=== PATIENT | male | born 1975 | race Caucasian/White ===

== ENCOUNTER → 2020-03-14 10:56 | Outpatient (CLI) | payer OTHER, SELFPAY ==
--- NOTE | 2020-03-14 | DI.CT.S_ITS ---
PROCEDURE: CT ABDOMEN PELVIS W CON INDICATIONS: GENERALIZED PAIN TECHNIQUE: After the administration of oral and intravenous contrast, 5 mm thick sections acquired from the diaphragms to the symphysis. 5 mm thick coronal and sagittal reformats were performed. For radiation dose reduction, the following was used: automated exposure control, adjustment of mA and/or kV according to patient size. COMPARISON: [facility], CT, IVP (ABD & PEL WWO CONTRAST), 05/07/2013, 10:14. FINDINGS: Image quality: Excellent. ABDOMEN: Lung bases: Lung bases are clear. Heart size is normal. Solid organs: Liver is normal in size and enhancement. Gallbladder appears normal . Biliary system is non-dilated. Pancreas enhances normally. Spleen is normal in size and enhancement. No adrenal nodules. Kidneys are normal in size and enhancement, without hydronephrosis. Peritoneum and bowel: Stomach, small bowel, and colon loops are normal in caliber and wall thickness. No free fluid or air. Nodes and vessels: No retroperitoneal or mesenteric adenopathy. Aorta and inferior vena cava are normal in caliber. Miscellaneous: No ventral hernias. PELVIS: Genitourinary: Bladder wall thickness is normal. At the inferior margin of the left hemipelvis there is a small rounded calcification which appears to be positioned just below and slightly lateral to the expected insertion of the distal left ureter. Edema adjacent to the ureter on the left or ureteral dilatation or renal collecting system dilatation is not seen and there is no left-sided perinephric edema. Therefore this is considered most likely a interval development of a focal phlebolith rather than a 9 usual positioning of a distal left ureteral stone. Miscellaneous: No inguinal hernias or adenopathy. Bones: No suspicious bony lesions. No vertebral body compression fractures. IMPRESSION: Uncertain etiology of generalized abdominal pain. No infection or neoplasm is found. As discussed above near the expected far distal margin of the left ureter there is a single small calcification considered most likely a interval development of a phlebolith from the CT scanning in April of 2013 and highly unlikely to represent a distal left ureteral stone given the absence of any Haylee ureteral edema, ureteral distension, or renal collecting system dilatation on the left. Dictated by: Shukri Fregoso M.D. on 03/14/2020 at 14:34 Approved by: Shukri Fregoso M.D. on 03/14/2020 at 14:39
== END ==
PROVIDERS: PCP Student in an Organized Health Care Education/Training Program; Referring Provider Student in an Organized Health Care Education/Training Program; Visit Provider Student in an Organized Health Care Education/Training Program
DX: R10.84 Generalized abdominal pain (principal); R19.7 Diarrhea, unspecified
CPT/HCPCS: 74177; Q9967

== ENCOUNTER → 2020-03-27 14:13 | Outpatient (CLI) | payer OTHER, SELFPAY ==
[2020-03-27 14:47] LABS: Add Manual Diff / Slide Review NO; Basophils Absolute Auto 100 /uL (0-100); Basophils Percent Auto 0.8 % (0-2); Eosinophils Absolute Auto 200 /uL (0-450); Eosinophils Percent Auto 1.6 % (2-4); Hematocrit 41.8 % (41-53); Hemoglobin 13.6 g/dL (13.5-17.5); Lymphocytes Absolute Auto 2000 /uL (1100-4500); Lymphocytes Percent Auto 16.7 % (25-40); Mean Corpuscular HGB Conc 32.5 % (30-36); Mean Corpuscular Hemoglobin 29.1 PG (26-34); Mean Corpuscular Volume 89.5 fL (80-100); Monocytes Absolute Auto 1000 /uL (0-900); Monocytes Percent Auto 8.3 % (3-14); Neutrophils Absolute Auto 8900 /uL (1500-7000); Neutrophils Percent Auto 72.6 % (50-75); Platelet Count 311 X10^3/uL (150-400); Red Blood Cell Count 4.67 X10^6/uL (4.5-5.9); Red Cell Distribution Width 17.9 % (11.6-14.8); White Blood Cell Count 12.2 X10^3/uL (4.5-11.0)
[2020-03-27 15:03] LABS: HEMOLYSIS < 15 (0-50); Iron 23 ug/dL (49-181)
[2020-03-27 15:05] LABS: Alanine Aminotransferase 14 IU/L (<50); Albumin 4.6 g/dL (3.5-5.0); Albumin Globulin Ratio 1.2 (1.0-2.8); Alkaline Phosphatase 71 U/L (38-126); Aspartate Aminotransferase 28 IU/L (17-59); Bilirubin Total 0.7 mg/dL (0.2-1.3); Blood Urea Nitrogen 16 mg/dL (9-20); Calcium 9.6 mg/dL (8.4-10.2); Carbon Dioxide 27 mmol/L (22-32); Chloride 100 mmol/L (98-107); Estimated Glomerular Filt Rate > 60.0 mL/min (>60); Globulin 3.9 g/dL (1.7-4.1); Glucose 106 mg/dL (70-100); HEMOLYSIS < 15 (0-50); Potassium 4.6 mmol/L (3.4-5.1); Sodium 135 mmol/L (137-145); Total Protein 8.5 g/dL (6.3-8.2)
[2020-03-27 15:14] LABS: Percent Iron Saturation 6 % (20-50); Total Iron Binding Capacity 354 ug/dL (261-462); Transferrin 275 mg/dL (206-381)
[2020-03-27 16:09] LABS: Folate 18.6 ng/mL (2.76-20.0); Vitamin B12 447 pg/mL (239-931)
== END ==
PROVIDERS: PCP Student in an Organized Health Care Education/Training Program; Referring Provider Internal Medicine Gastroenterology; Visit Provider Internal Medicine Gastroenterology
DX: R19.4 Change in bowel habit (principal); R19.8 Other specified symptoms and signs involving the digestive system and abdomen
CPT/HCPCS: 36415; 80053; 82607; 82746; 83540; 83550; 85025

== ENCOUNTER → 2020-03-28 11:28 | Outpatient (CLI) | payer OTHER, SELFPAY ==
[2020-03-30 12:11] LABS: Calprotectin, Stool 2677 ug/g (0-120)
== END ==
PROVIDERS: PCP Student in an Organized Health Care Education/Training Program; Referring Provider Internal Medicine Gastroenterology; Visit Provider Internal Medicine Gastroenterology
DX: R19.4 Change in bowel habit (principal); R19.8 Other specified symptoms and signs involving the digestive system and abdomen
CPT/HCPCS: 83993

== ENCOUNTER → 2021-03-03 13:08 | Outpatient (CLI) | payer OTHER, SELFPAY ==
[2021-03-03 14:10] LABS: COVID19 -Nasal RAPID POSITIVE (Negative)
== END ==
PROVIDERS: PCP Student in an Organized Health Care Education/Training Program; Referring Provider Nurse Practitioner Family; Visit Provider Nurse Practitioner Family
DX: Z20.822 Contact with and (suspected) exposure to COVID-19 (principal)
CPT/HCPCS: 87635

== ENCOUNTER → 2022-08-19 15:59 | Outpatient (CLI) | payer OTHER, SELFPAY ==
--- NOTE | 2022-08-19 | DI.MRI.S_ITS ---
PROCEDURE: MR BRAIN (PITUITARY) WWO CON INDICATIONS: Elevated prolactin level TECHNIQUE: Noncontrast sagittal and axial FLAIR, axial gradient echo, axial diffusion and ADC through the brain. Thin-slice sagittal and coronal T1 spin echo, coronal T2 fast spin echo through the pituitary. After the administration contrast, optional dynamic coronal T1 spin echo, thin-slice coronal and sagittal T1 spin echo images through the pituitary fossa; axial and coronal and sagittal T1 spin echo with fat saturation through the brain. COMPARISON: None. FINDINGS: Image quality: Excellent. Pituitary Gland: The pituitary gland demonstrates normal signal and bulk. On the postcontrast imaging, no masses or abnormally enhancing areas are seen. The pituitary stalk and infundibulum have an unremarkable appearance. A normal appearing pituitary bright spot is seen posteriorly on the precontrast sagittal T1-weighted images. The optic chiasm and the ventral forebrain have an unremarkable appearance. CSF Spaces: Ventricles are normal in size and shape. Basal cisterns are patent. No extra-axial fluid collections. Brain: No intracranial bleeds or mass effects. No abnormal intracranial enhancement. Plummer-white matter interface is intact. Diffusion weighted images demonstrate no acute ischemic insults. Brainstem is normal. Normal intravascular flow voids are present. Skull and face: Calvarial marrow is normal in signal. Orbits appear normal. Sinuses: Sinuses and mastoids are clear. IMPRESSION: Normal pituitary gland, without a cause of the patient's presenting history identified. Dictated by: Johnny Taylor M.D. on 08/19/2022 at 18:12 Approved by: Johnny Taylor M.D. on 08/19/2022 at 18:13
== END ==
PROVIDERS: PCP Family Medicine; Referring Provider Family Medicine; Visit Provider Family Medicine
DX: R79.89 Other specified abnormal findings of blood chemistry (principal)
CPT/HCPCS: 70553

== ENCOUNTER → 2023-06-02 10:05 | Outpatient (CLI) | payer OTHER, SELFPAY ==
[2023-06-02 10:54] LABS: Hematocrit 45.2 % (41-53); Mean Corpuscular HGB Conc 33.3 % (30-36); Mean Corpuscular Hemoglobin 30.6 PG (26-34); Mean Corpuscular Volume 91.9 fL (80-100); Platelet Count 271 X10^3/uL (150-400); Red Blood Cell Count 4.91 X10^6/uL (4.5-5.9); Red Cell Distribution Width 13.6 % (11.6-14.8); White Blood Cell Count 7.3 X10^3/uL (4.5-11.0)
[2023-06-02 11:28] LABS: Alanine Aminotransferase 25 IU/L (<50); Albumin 4.4 g/dL (3.5-5.0); Albumin Globulin Ratio 1.3 (1.0-2.8); Alkaline Phosphatase 39 U/L (38-126); Aspartate Aminotransferase 39 IU/L (17-59); Bilirubin Total 0.8 mg/dL (0.2-1.3); Bilirubin Unconjugated 0.5 mg/dL (0.0-1.1); Globulin 3.5 g/dL (1.7-4.1); HEMOLYSIS < 15 (0-50); Total Protein 7.9 g/dL (6.3-8.2)
== END ==
PROVIDERS: PCP Family Medicine; Referring Provider Specialist; Visit Provider Specialist
DX: K50.119 Crohn's disease of large intestine with unspecified complications (principal)
CPT/HCPCS: 36415; 80076; 85027

== ENCOUNTER → 2024-08-29 14:32 | Outpatient (CLI) | payer OTHER, SELFPAY ==
[2024-08-29 15:11] LABS: Alanine Aminotransferase 30 IU/L (<50); Albumin 4.3 g/dL (3.5-5.0); Albumin Globulin Ratio 1.5 (1.0-2.8); Alkaline Phosphatase 40 U/L (38-126); Aspartate Aminotransferase 43 IU/L (17-59); Bilirubin Total 0.6 mg/dL (0.2-1.3); Blood Urea Nitrogen 24 mg/dL (9-20); Calcium 9.2 mg/dL (8.4-10.2); Carbon Dioxide 25 mmol/L (22-32); Chloride 102 mmol/L (98-107); Estimated Glomerular Filt Rate > 60 mL/min (>60); Globulin 2.9 g/dL (1.7-4.1); Glucose 78 mg/dL (70-99); HEMOLYSIS < 15 (0-50); Potassium 4.2 mmol/L (3.4-5.1); Sodium 134 mmol/L (137-145); Total Protein 7.2 g/dL (6.3-8.2)
== END ==
PROVIDERS: PCP Family Medicine; Referring Provider Family Medicine; Visit Provider Family Medicine
DX: R10.31 Right lower quadrant pain (principal)
CPT/HCPCS: 36415; 80053

== ENCOUNTER → 2024-08-30 08:01 | Outpatient (CLI) | payer OTHER, SELFPAY ==
--- NOTE | 2024-08-30 08:02 | DI.CT.S_ITS ---
PROCEDURE: CT ABDOMEN PELVIS W CON INDICATIONS: LLQ ABD PAIN TECHNIQUE: After the administration of intravenous contrast, axial sections acquired from the lung bases to the pubic symphysis. Coronal and sagittal reformats were performed. For radiation dose reduction, the following was used: automated exposure control, adjustment of mA and/or kV according to patient size. COMPARISON: [facility], CT, CT ABDOMEN PELVIS W CON, 03/14/2020, 11:46. FINDINGS: Image quality: Diagnostic. Lower Chest: No significant findings. ABDOMEN: Liver: No solid mass. Gallbladder: No radiopaque gallstones or wall thickening. Biliary ducts: No biliary dilation. Pancreas: No ductal dilation. Spleen: Size is within normal limits. Adrenal Glands: No adrenal nodules. Kidneys and Ureters: No hydronephrosis. No solid mass. No complex renal cystic lesion which requires follow up. Stomach and Bowel: Normal colonic caliber, without significant wall thickening. Peritoneum: No abnormal intraperitoneal fluid. No free air. Ventral Wall: No significant ventral hernia. Abdominal Nodes: No retroperitoneal or mesenteric adenopathy by size criteria. Vessels: Aorta and inferior vena cava are normal in size. PELVIS: Pelvic Organs: Unremarkable. Bladder: No bladder wall thickening, accounting for underdistention. Pelvic Nodes: No enlarged lymph nodes. Miscellaneous: No inguinal hernias are seen. As was previously the case 03/14/20 there is a small rounded 2 mm calcification adjacent to the far distal course of the left ureter. This has not changed in size or position, and is not associated with ureteral inflammation or dilatation. It is considered a coincidental phlebolith. Mild sigmoid diverticulosis and normal appendix found. Bones: No aggressive osseous abnormality. IMPRESSION: 1. No evidence of active Crohn's disease. 2. Mild sigmoid diverticulosis without acute diverticulitis. Normal appendix found. 3. Stable 2 mm rounded calcification adjacent to the far distal course of the left ureter. This is considered a phlebolith given its chronicity over time. Dictated by: Shukri Fregoso M.D. on 08/30/2024 at 12:39 Approved by: Shukri Fregoso M.D. on 08/30/2024 at 12:44
== END ==
LOC: CT 08:01
PROVIDERS: PCP Family Medicine; Referring Provider Family Medicine; Visit Provider Family Medicine
DX: K57.30 Diverticulosis of large intestine without perforation or abscess without bleeding (principal); I87.8 Other specified disorders of veins; R10.32 Left lower quadrant pain
CPT/HCPCS: 74177; Q9967

== ENCOUNTER 2024-11-08 09:30 | Emergency (ER) | payer OTHER, SELFPAY ==
[2024-11-08] VITALS (41 sets, daily range): BP systolic 137–182; BP diastolic 77–111; PULSE 65–83; RESP 8–24; TEMP 36.6; O2SAT 94–98; BMI 31.1
--- NOTE | 2024-11-08 09:38 | ED_ITS ---
HPI - General Adult General Chief complaint: Chest Pain Stated complaint: Sent from [facility] Upper stomach pain x 1 day Time Seen by Provider: 11/08/24 09:34 History of Present Illness HPI narrative: 49-year-old gentleman with a history of hypertension, Crohn's disease presents via walk-in clinic today complaining of epigastric/chest pain. He states symptoms started at 10:00 a.m. yesterday epigastric to substernal radiating toward his left pectoralis muscle and also toward the tip of his scapula. Associated with dyspnea but no fevers, cough. No nausea or vomiting. Blood pressure is elevated on arrival however he has not taken his usual lisinopril this morning. He does have a history of hypertension as well as Crohn's disease and is on infliximab for the Crohn's disease, reports that it is currently well controlled/in remission. Related Data Home Medications ?Medication ?Instructions ?Recorded ?Confirmed lisinopril 10 mg tablet ##0 06/22/17 11/08/24 Allergies Allergy/AdvReac Type Severity Reaction Status Date / Time No Known Drug Allergies Allergy Verified 11/08/24 09:39 Review of Systems Review of Systems Narrative: Pertinent positive and negative findings as per HPI Patient History Medical History (Updated 11/08/24 @ 11:06 by Ijeoma Monreal MD) Crohn's disease Hypertension Social History Smoking Status: Never smoker Exam Initial Vital Signs Initial Vital Signs: Vital Signs Pulse Rate 80 11/08/24 09:34 Blood Pressure 182/111 H 11/08/24 09:34 Pulse Oximetry 98 11/08/24 09:34 General: Healthy appearing, but appears quite uncomfortable HEENT: Moist mucous membranes, normal sclera with reactive pupils, Respiratory: Lungs are clear to auscultation, no wheezing no rales no rhonchi. Full and symmetrical air movement Cardiac: Regular rate and rhythm no murmurs no bruits. Palpation along the lower sternal and lower anterior left rib borders reproduces his pain Abdomen: Mildly distended, moderate epigastric and left upper quadrant tenderness without rebound or guarding. Skin: Pale, slightly diaphoretic secondary to pain Neurologic: Grossly neurologically intact with no obvious asymmetries or abnormalities Extremities: No trauma, well perfused Psych: Cooperative, appropriate insight and affect Course Orders Ordered: Discontinued Medications Aspirin (Aspirin 81 Mg Chew Tab) 324 mg PO NOW ONE Stop: 11/08/24 09:46 Last Admin: 11/08/24 09:54 Dose: Not Given Documented By: RB Aspirin (Aspirin 81 Mg Chew Tab) 324 mg PO NOW ONE Stop: 11/08/24 09:44 Last Admin: 11/08/24 09:57 Dose: 324 mg Documented By: RB Hydromorphone HCl (Hydromorphone Hcl 0.5 Mg/0.5 Ml Syringe) 0.5 mg IV Q15MIN PRN PRN Reason: Pain, Last Admin: 11/08/24 15:23 Dose: 0.5 mg Documented By: Admin: 11/08/24 13:25 Dose: 0.5 mg Documented By: KARTHIKEYAN Piperacillin Sod/Tazobactam (Sod 4.5 gm/ Sodium Chloride) 100 mls @ 200 mls/hr IV STAT ONE Stop: 11/08/24 10:55 Last Infusion: 11/08/24 11:43 Dose: Infused Documented By: Admin: 11/08/24 11:02 Dose: 200 mls/hr Documented By: KARTHIKEYAN Piperacillin Sod/Tazobactam (Sod 3.375 gm/ Sodium Chloride) 100 mls @ 25 mls/hr IV Q8H TERRY Last Admin: 11/08/24 11:45 Dose: Not Given Documented By: ASIF Sodium Chloride (Normal Saline 0.9%) 1,000 mls @ 150 mls/hr IV CONT TERRY Last Admin: 11/08/24 11:22 Dose: 150 mls/hr Documented By: MILA Lisinopril (Lisinopril 10 Mg Tablet) 10 mg PO NOW ONE Stop: 11/08/24 09:44 Last Admin: 11/08/24 10:29 Dose: 10 mg Documented By: RB Morphine Sulfate (Morphine 2 Mg/Ml Inj) 2 mg IV Q5MIN PRN PRN Reason: Chest Pain Last Admin: 11/08/24 11:41 Dose: 2 mg Documented By: Admin: 11/08/24 10:48 Dose: 2 mg Documented By: Admin: 11/08/24 10:30 Dose: 2 mg Documented By: AGUSTIN Nitroglycerin (Nitroglycerin 0.4 Mg Sl Tab) 0.4 mg SL [id number] PRN PRN Reason: Chest Pain Last Admin: 11/08/24 10:12 Dose: 0.4 mg Documented By: AGUSTIN Ondansetron HCl (Ondansetron 4 Mg/2 Ml Inj) 4 mg IV NOW ONE Stop: 11/08/24 13:22 Last Admin: 11/08/24 13:25 Dose: 4 mg Documented By: KARTHIKEYAN Vital Signs Vital signs: Vital Signs - 8 hr 11/08/24 11:40 11/08/24 11:40 11/08/24 11:50 Pulse Rate 75 69 Respiratory Rate 24 12 Blood Pressure 144/90 H Pulse Oximetry 98 98 11/08/24 11:50 11/08/24 12:00 11/08/24 12:00 Pulse Rate 67 Respiratory Rate 15 Blood Pressure 148/91 H 146/89 H Pulse Oximetry 97 11/08/24 12:10 11/08/24 12:10 11/08/24 12:20 Pulse Rate 69 71 Respiratory Rate 20 16 Blood Pressure 150/94 H Pulse Oximetry 98 98 11/08/24 12:20 11/08/24 12:30 11/08/24 12:30 Pulse Rate 72 Respiratory Rate 19 Blood Pressure 155/93 H 158/91 H Pulse Oximetry 98 11/08/24 12:40 11/08/24 12:40 11/08/24 12:50 Pulse Rate 69 Respiratory Rate 18 Blood Pressure 160/95 H 151/95 H Pulse Oximetry 98 11/08/24 12:50 11/08/24 13:00 11/08/24 13:00 Pulse Rate 66 73 Respiratory Rate 19 21 Blood Pressure 158/97 H Pulse Oximetry 98 98 11/08/24 13:10 11/08/24 13:10 11/08/24 13:20 Pulse Rate 69 71 Respiratory Rate 18 19 Blood Pressure 155/95 H Pulse Oximetry 98 97 11/08/24 13:20 11/08/24 13:30 11/08/24 13:30 Pulse Rate 71 Respiratory Rate 14 Blood Pressure 157/98 H 150/95 H Pulse Oximetry 97 11/08/24 13:40 11/08/24 13:40 11/08/24 13:50 Pulse Rate 72 70 Respiratory Rate 16 18 Blood Pressure 157/92 H Pulse Oximetry 96 95 11/08/24 13:50 11/08/24 14:00 11/08/24 14:00 Pulse Rate 74 Respiratory Rate 16 Blood Pressure 156/89 H 156/90 H Pulse Oximetry 95 11/08/24 14:10 11/08/24 14:10 11/08/24 14:20 Pulse Rate 74 83 Respiratory Rate 13 15 Blood Pressure 153/92 H Pulse Oximetry 96 96 11/08/24 14:20 11/08/24 14:30 11/08/24 14:30 Pulse Rate 73 Respiratory Rate 17 Blood Pressure 170/92 H 146/79 H Pulse Oximetry 94 11/08/24 14:40 11/08/24 14:40 11/08/24 14:50 Pulse Rate 75 66 Respiratory Rate 19 12 Blood Pressure 147/79 H Pulse Oximetry 95 98 11/08/24 14:50 11/08/24 15:00 11/08/24 15:01 Pulse Rate 67 Respiratory Rate 14 Blood Pressure 145/77 H 149/88 H Pulse Oximetry 95 11/08/24 15:01 11/08/24 15:10 11/08/24 15:10 Pulse Rate 65 68 Respiratory Rate 11 L 14 Blood Pressure 138/84 Pulse Oximetry 96 97 11/08/24 15:26 11/08/24 15:26 11/08/24 15:30 Pulse Rate 77 Respiratory Rate 17 Blood Pressure 170/92 H 157/88 H Pulse Oximetry 97 11/08/24 15:30 11/08/24 15:40 11/08/24 15:40 Pulse Rate 73 72 Respiratory Rate 8 L 12 Blood Pressure 154/89 H Pulse Oximetry 95 96 11/08/24 15:50 11/08/24 15:50 Pulse Rate 73 Respiratory Rate 20 Blood Pressure 162/94 H Pulse Oximetry 97 Medical Decision Making Lab Data 11/08/24 09:50 11/08/24 09:50 Labs: Lab Results 11/08/24 Range/Units 09:50 WBC 12.4 H (4.5-11.0) X10^3/uL RBC 5.35 (4.5-5.9) X10^6/uL Hgb 17.0 (13.5-17.5) g/dL Hct 49.4 (41-53) % MCV 92.3 (80-100) fL MCH 31.7 (26-34) PG MCHC 34.3 (30-36) % RDW 14.7 (11.6-14.8) % Plt Count 215 (150-400) X10^3/uL Neut % (Auto) 79.0 H (50-75) % Lymph % (Auto) 13.3 L (25-40) % [place] % (Auto) 6.7 (3-14) % Eos % (Auto) 0.3 L (2-4) % Baso % (Auto) 0.7 (0-2) % Neut # (Auto) 9800 H (7274-6401) /uL Lymph # (Auto) 1600 (9672-1319) /uL [place] # (Auto) 800 (0-900) /uL Eos # (Auto) 0 (0-450) /uL Baso # (Auto) 100 (0-100) /uL PT 11.6 (9.4-12.5) SECONDS INR 1.0 (0.9-1.3) APTT 27 (25.1-36.5) SECONDS Sodium 134 L (137-145) mmol/L Potassium 4.0 (3.4-5.1) mmol/L Chloride 99 (98-107) mmol/L Carbon Dioxide 24 (22-32) mmol/L BUN 18 (9-20) mg/dL Creatinine 1.10 (0.66-1.25) mg/dL Estimated GFR > 60 (>60) mL/min BUN/Creatinine Ratio 16.4 (6-22) Glucose 99 (70-99) mg/dL Calcium 8.9 (8.4-10.2) mg/dL Magnesium 1.7 (1.6-2.3) mg/dL Total Bilirubin 1.3 (0.2-1.3) mg/dL AST 50 (17-59) IU/L ALT 39 (<50) IU/L Alkaline Phosphatase 43 (38-126) U/L Total Creatine Kinase 174 H (55-170) U/L Troponin I < 0.012 (0.01-0.034) ng/mL NT-Pro-B Natriuret Pep < 20 (<125) pg/mL Total Protein 8.5 H (6.3-8.2) g/dL Albumin 4.7 (3.5-5.0) g/dL Globulin 3.8 (1.7-4.1) g/dL Albumin/Globulin Ratio 1.2 (1.0-2.8) Lipase 1601 H (23-300) U/L Imaging Data CT scan - abdomen/pelvis: Radiologist's Impression: PROCEDURE: CT ABDOMEN PELVIS W CON INDICATIONS: epigastric and LUQ pain TECHNIQUE: After the administration of intravenous contrast, axial sections acquired from the lung bases to the pubic symphysis. Coronal and sagittal reformats were performed. For radiation dose reduction, the following was used: automated exposure control, adjustment of mA and/or kV according to patient size. COMPARISON: [facility], CT, CT ABDOMEN PELVIS W CON, 08/30/2024, 9:22. FINDINGS: Image quality: Diagnostic. Lower Chest: No significant findings. ABDOMEN: Liver: No solid mass. Gallbladder: No radiopaque gallstones or wall thickening. Biliary ducts: No biliary dilation. Pancreas: There is a small area of the head of the pancreas which appears somewhat inflamed and edematous. This is felt likely to be secondary to a process centered in the duodenum. It is felt unlikely that focal pancreatitis has resulted in extensive duodenitis. Spleen: Size is within normal limits. Adrenal Glands: No adrenal nodules. Kidneys and Ureters: No hydronephrosis. No solid mass. No complex renal cystic lesion which requires follow up. Stomach and Bowel: There is extensive inflammatory change involving the duodenal bulb and C-loop with possible ruptured ulcer. There is extensive inflammation in the surrounding tissues. There is no free air. There is a small amount of inflamed head of pancreas, which is likely a secondary phenomenon. Sigmoid diverticulosis without evidence of acute diverticulitis. Peritoneum: No abnormal intraperitoneal fluid. No free air. Ventral Wall: No significant ventral hernia. Abdominal Nodes: No retroperitoneal or mesenteric adenopathy by size criteria. Vessels: Aorta and inferior vena cava are normal in size. PELVIS: Pelvic Organs: Prostatomegaly.. Bladder: No bladder wall thickening, accounting for underdistention. Pelvic Nodes: No enlarged lymph nodes. Miscellaneous: No inguinal hernias are seen. Bones: No aggressive osseous abnormality. IMPRESSION: There is an extensive inflammatory process centered in the duodenal bulb and C- loop with inflammatory change throughout the adjacent fat. There is a small area of edematous inflamed pancreatic head immediately adjacent to the duodenum. Findings most likely represent duodenitis and duodenal ulcer with possible rupture without free air. Less likely is very focal pancreatitis resulting in extensive subjacent inflammation including the duodenum. Comment: Findings were discussed with Dr. Monreal at the time of study dictation on 11/08/2024 at 1033 hours. Dictated by: Juwan Orozco M.D. on 11/08/2024 at 10:32 MDM Narrative Medical decision making narrative: CC: Epigastric/left upper quadrant/left-sided chest pain Complicating co-morbidities: Hypertension, Crohn's disease, on infliximab Data collected from: patient Differential considered: Chest pain, epigastric pain, gastric ulcer, pancreatitis, bowel obstruction Exam documented above, pertinent findings include: Tenderness in the left upper quadrant epigastrium with some mild abdominal distention Lab Test results independently reviewed as above. Pertinent findings: CBC shows mild leukocytosis at 12.4 with neutrophils at 79%, no anemia Chemistries are reassuring Troponin is undetectable No evidence of congestive heart failure Lipase is elevated at 1601 Independently reviewed EKG: Sinus rhythm at a rate of 76 without any ischemic changes Imaging studies independently reviewed: Chest x-ray is unremarkable CT scan shows There is an extensive inflammatory process centered in the duodenal bulb and C-loop with inflammatory change throughout the adjacent fat. There is a small area of edematous inflamed pancreatic head immediately adjacent to the duodenum. Findings most likely represent duodenitis and duodenal ulcer with possible rupture without free air. Less likely is very focal pancreatitis resulting in extensive subjacent inflammation including the duodenum. CT scan was discussed with Radiology in real-time Consultations: Discussed with surgeon at [facility], given the potential for complications and currently on infliximab recommendation was transfer to hospital with large capacity. Will begin looking for bed availability No beds available at [facility] (this is where his primary GI care is)[facility] in [facility]. 1200 discussion with [facility] physician to review care and help with finding bed availability. [address] Castelan, shaft mechanic [facility]. Accepts the patient. We will need to talk to the hospitalist. They stated they do have beds. 2pm return call from [facility]. Patient will be admitted to [facility]. At 2:40 a.m., bed is available and transport we will be obtained. Findings and reason for transfer to [facility] are reviewed with the patient. He remains hemodynamically stable at this time. Treatments: Fluids, aspirin, a single nitro glycerin was given with no change to his pain no additional was given. Was given his 10 mg of lisinopril and Zosyn was initiated Re-evaluations: 11am patient is informed of findings, lab work, concern for perforated duodenal ulcer possibility of pancreatitis. Explained need for transfer and care that will continue through the ER will will you are looking for bed availability Discussion: 49-year-old gentleman with acute pain starting at 10:00 a.m. yesterday. History of Crohn's disease, on infliximab. CT scan has concern for contained perforated duodenal ulcer. Also some inflammation of the head of the pancreas with lipase slightly elevated. He is started on Zofran, given fluids we will remain NPO and we will begin to for bed availability for transfer Discharge Plan Departure Patient Disposition: [facility] Clinical Impression: Duodenal ulcer, perforated Pancreatitis Qualifiers: Chronicity: acute Pancreatitis type: unspecified pancreatitis type Acute pancreatitis complication: unspecified Qualified Code(s): K85.90 - Acute pancreatitis without necrosis or infection, unspecified Prescriptions: No Action lisinopril 10 MG tablet Qty: 0 Referrals: Hugh Pozo MD [Primary Care Provider, [facility]]
--- NOTE | 2024-11-08 09:43 | DI.CT.S_ITS ---
PROCEDURE: CT ABDOMEN PELVIS W CON INDICATIONS: epigastric and LUQ pain TECHNIQUE: After the administration of intravenous contrast, axial sections acquired from the lung bases to the pubic symphysis. Coronal and sagittal reformats were performed. For radiation dose reduction, the following was used: automated exposure control, adjustment of mA and/or kV according to patient size. COMPARISON: [facility], CT, CT ABDOMEN PELVIS W CON, 08/30/2024, 9:22. FINDINGS: Image quality: Diagnostic. Lower Chest: No significant findings. ABDOMEN: Liver: No solid mass. Gallbladder: No radiopaque gallstones or wall thickening. Biliary ducts: No biliary dilation. Pancreas: There is a small area of the head of the pancreas which appears somewhat inflamed and edematous. This is felt likely to be secondary to a process centered in the duodenum. It is felt unlikely that focal pancreatitis has resulted in extensive duodenitis. Spleen: Size is within normal limits. Adrenal Glands: No adrenal nodules. Kidneys and Ureters: No hydronephrosis. No solid mass. No complex renal cystic lesion which requires follow up. Stomach and Bowel: There is extensive inflammatory change involving the duodenal bulb and C-loop with possible ruptured ulcer. There is extensive inflammation in the surrounding tissues. There is no free air. There is a small amount of inflamed head of pancreas, which is likely a secondary phenomenon. Sigmoid diverticulosis without evidence of acute diverticulitis. Peritoneum: No abnormal intraperitoneal fluid. No free air. Ventral Wall: No significant ventral hernia. Abdominal Nodes: No retroperitoneal or mesenteric adenopathy by size criteria. Vessels: Aorta and inferior vena cava are normal in size. PELVIS: Pelvic Organs: Prostatomegaly.. Bladder: No bladder wall thickening, accounting for underdistention. Pelvic Nodes: No enlarged lymph nodes. Miscellaneous: No inguinal hernias are seen. Bones: No aggressive osseous abnormality. IMPRESSION: There is an extensive inflammatory process centered in the duodenal bulb and C- loop with inflammatory change throughout the adjacent fat. There is a small area of edematous inflamed pancreatic head immediately adjacent to the duodenum. Findings most likely represent duodenitis and duodenal ulcer with possible rupture without free air. Less likely is very focal pancreatitis resulting in extensive subjacent inflammation including the duodenum. Comment: Findings were discussed with Dr. Monreal at the time of study dictation on 11/08/2024 at 1033 hours. Dictated by: Juwan Orozco M.D. on 11/08/2024 at 10:32 Approved by: Juwan Orozco M.D. on 11/08/2024 at 10:38
--- NOTE | 2024-11-08 09:45 | DI.RAD.S_ITS ---
PROCEDURE: XR CHEST 1V INDICATIONS: Chest Pain TECHNIQUE: One view of the chest was acquired. COMPARISON: None. FINDINGS: Surgical changes and devices: None. Lungs and pleura: Lungs are clear. No pleural effusions or pneumothorax. Mediastinum: Mediastinal contours appear normal. Heart size is normal. Bones and chest wall: No suspicious bony lesions. Overlying soft tissues appear unremarkable. IMPRESSION: No acute cardiopulmonary abnormality is seen. Dictated by: Shukri Fregoso M.D. on 11/08/2024 at 10:09 Approved by: Shukri Fregoso M.D. on 11/08/2024 at 10:09
--- NOTE | 2024-11-08 09:45 | EKG_ITS ---
[address] [address] Test Date: 2024-11-08 Pat Name: Ernesto Crouch Department: Room: Gender: Male [employer] Server: EMILIANA : 1975 Requested By: Order Number: [id number] Reading MD: Jeromy Walsh Measurements Intervals [place] Rate: 76 P: 58 AL: 146 QRS: 50 QRSD: 104 T: 55 QT: 368 QTc: 414 Interpretive Statements Normal sinus rhythm Electronically Signed On 11-23-2024 8:06:31 PDT by Jeromy Walsh
[2024-11-08] MEDS: ASPIRIN 81 MG CHEW TAB 324 MG PO (09:57)
[2024-11-08 10:04] LABS: Add Manual Diff / Slide Review NO; Hematocrit 49.4 % (41-53); Hemoglobin 17.0 g/dL (13.5-17.5); Lymphocytes Absolute Auto 1600 /uL (1100-4500); Mean Corpuscular HGB Conc 34.3 % (30-36); Mean Corpuscular Hemoglobin 31.7 PG (26-34); Mean Corpuscular Volume 92.3 fL (80-100); Platelet Count 215 X10^3/uL (150-400)
[2024-11-08 10:08] LABS: INR 1.0 (0.9-1.3); Prothrombin Time 11.6 SECONDS (9.4-12.5)
[2024-11-08 10:11] LABS: PTT Partial Thromboplastin Tim 27 SECONDS (25.1-36.5)
[2024-11-08 10:12] LABS: Alanine Aminotransferase 39 IU/L (<50); Albumin 4.7 g/dL (3.5-5.0); Albumin Globulin Ratio 1.2 (1.0-2.8); Alkaline Phosphatase 43 U/L (38-126); Blood Urea Nitrogen 18 mg/dL (9-20); Calcium 8.9 mg/dL (8.4-10.2); Carbon Dioxide 24 mmol/L (22-32); Chloride 99 mmol/L (98-107); Creatine Kinase 174 U/L (55-170); Estimated Glomerular Filt Rate > 60 mL/min (>60); Globulin 3.8 g/dL (1.7-4.1); Glucose 99 mg/dL (70-99); HEMOLYSIS 17 (0-50); Lipase 1601 U/L (23-300); Magnesium 1.7 mg/dL (1.6-2.3); Potassium 4.0 mmol/L (3.4-5.1); Sodium 134 mmol/L (137-145); Total Protein 8.5 g/dL (6.3-8.2)
[2024-11-08] MEDS: NITROGLYCERIN 0.4 MG SL TAB SL (10:12)
[2024-11-08 10:23] LABS: NT-proBNP (BNP-Adult 18+) < 20 pg/mL (<125); Troponin I < 0.012 ng/mL (0.01-0.034)
[2024-11-08] MEDS: MORPHINE 2 MG/ML INJ IV ×3 (10:30→11:41)
[2024-11-08] MEDS: PIPERACILLIN/TAZO 4.5 GM in SODIUM CHLORIDE 0.9% 100 ML IV (11:02)
[2024-11-08] MEDS: SODIUM CHLORIDE 0.9% 1,000 ML 150 ML IV (11:22)
[2024-11-08] MEDS: ONDANSETRON 4 MG/2 ML INJ IV (13:25)
== END 2024-11-08 16:30 | disposition short-term general hospital (02) ==
PROVIDERS: Emergency Provider Emergency Medicine; PCP Family Medicine
DX: K85.90 Acute pancreatitis without necrosis or infection, unspecified (principal); K26.5 Chronic or unspecified duodenal ulcer with perforation
CPT/HCPCS: 36415; 71045; 74177; 80053; 82550; 83690; 83735; 83880; 84484; 85025; 85610; 85730; 93005; 96365; 96375; 96376; 99284; J1171; J2270; J2405; J2543; Q9967

== ENCOUNTER → 2025-01-14 09:06 | Outpatient (CLI) | payer OTHER, SELFPAY ==
--- NOTE | 2025-01-14 09:07 | DI.RAD.S_ITS ---
PROCEDURE: XR SHOULDER LT MIN 2V INDICATIONS: L SHOULDER PAIN TECHNIQUE: Three views of the shoulder were acquired. COMPARISON: None. FINDINGS: Bones: No fractures or dislocations. Mild degenerative spurring in the acromioclavicular joint. No suspicious bony lesions. Visualized ribs appear intact. Soft tissues: No suspicious soft tissue calcifications. IMPRESSION: No acute bony abnormality. Mild degenerative change. Dictated by: Lillie Ortega M.D. on 01/14/2025 at 12:30 Approved by: Lillie Ortega M.D. on 01/14/2025 at 12:30
== END ==
PROVIDERS: PCP Family Medicine; Referring Provider Family Medicine; Visit Provider Family Medicine
DX: M25.512 Pain in left shoulder (principal); M19.012 Primary osteoarthritis, left shoulder
CPT/HCPCS: 73030

== ENCOUNTER → 2025-04-15 19:41 | Outpatient (CLI) | payer OTHER, SELFPAY ==
--- NOTE | 2025-04-15 19:43 | DI.MRI.S_ITS ---
PROCEDURE: MR SHOULDER LT WO CON INDICATIONS: LT SHOULDER PX TECHNIQUE: Noncontrast oblique coronal T2 fast spin echo with fat saturation, oblique sagittal T1 spin echo and T2 fast spin echo with fat saturation, axial T1 spin echo and T2 fast spin echo with fat saturation through the shoulder. COMPARISON: None. FINDINGS: Image quality: Diagnostic. Rotator cuff: Supraspinatus anterior leading edge articular sided, partial thickness, approximately 50%, partial width, 9 mm, insertional tear. Mild tendinosis of the adjacent anterior supraspinatus tendon. Infraspinatus is intact. Mild intrasubstance tendinosis of subscapularis. Inhomogeneity of the magnetic field adjacent to the lateral aspect of teres minor due to close proximity to the coil. No focal atrophy or fatty infiltration of the rotator cuff musculature. Biceps: Moderate tendinosis of the long head biceps at the biceps lazarus with short-segment longitudinal tearing (series 9, image 11). The biceps is perched on the superior aspect of the lesser tuberosity, concerning for partial tearing the superior glenohumeral ligament at the biceps lazarus. Osseous structures and articular cartilage: No fracture, or suspicious marrow replacing process, or contusion. Partial-thickness articular cartilage thinning of the posterior glenoid without full-thickness defect. Supraspinatus outlet: Moderate acromioclavicular joint osteoarthritis. Mild subacromial subdeltoid bursitis. Downsloping of the distal acromion. Intra-articular: Multidirectional tearing of the posterior superior to posterior labrum with a medially directed 7 mm paralabral cyst (series 5, image 12). The capsule is unremarkable. No imaging findings of adhesive capsulitis. Extra-articular: Normal deltoid. No visualized axillary lymphadenopathy. The superficial soft tissues are unremarkable. No focal lesion in the quadrilateral space IMPRESSION: 1. Supraspinatus anterior leading edge articular sided partial thickness partial width insertional tear. 2. Posterior to posterior superior labral multidirectional tear with a 7 mm paralabral cyst. 3. Moderate tendinosis of the long head of biceps with short-segment intrasubstance tear. 4. Medial subluxation of the long head of biceps at the superior bicipital groove, concerning for at least partial tearing of the superior glenohumeral ligament. Dictated by: Iain Hadley. on 04/16/2025 at 8:58 Approved by: Valentín Lopez M.D. on 04/16/2025 at 9:08
== END ==
LOC: MRI 19:42
PROVIDERS: PCP Family Medicine; Referring Provider Family Medicine; Visit Provider Family Medicine
DX: M75.112 Incomplete rotator cuff tear or rupture of left shoulder, not specified as traumatic (principal); S43.432A Superior glenoid labrum lesion of left shoulder, initial encounter; S46.112A Strain of muscle, fascia and tendon of long head of biceps, left arm, initial encounter; M25.512 Pain in left shoulder; G89.29 Other chronic pain
CPT/HCPCS: 73221